=== PATIENT | male | born 1985 | race Caucasian/White ===

== ENCOUNTER → 2020-03-11 13:51 | Outpatient (REF) | payer BC, SELFPAY | LOC: HO.SL 13:51 | PROVIDERS: PCP Internal Medicine; Visit Provider Internal Medicine | DX: G47.00 Insomnia, unspecified (principal); R06.83 Snoring; R40.0 Somnolence | CPT/HCPCS: 95806 ==

== ENCOUNTER 2020-04-28 09:30 | Outpatient (REF) | payer BC, SELFPAY ==
[2020-04-28 11:11] LABS: MANUAL DIFF FLAG NO
[2020-04-28 11:15] LABS: Basophils Percent Auto 0.3 % (0-2); Eosinophils Absolute Auto 0.1 X10*3/uL (0.0-0.4); Eosinophils Percent Auto 1.9 % (0-4); Hematocrit 47.4 % (42-52); Hemoglobin 15.8 g/dl (14.0-18.0); Imm Gran Abs Auto 0.01 X10*3/uL (0.00-0.03); Imm Gran Pct Auto 0.2 % (0.0-0.4); Lymphocytes Percent Auto 32.6 % (20-40); Mean Corpuscular HGB Conc 33.3 g/dl (31.0-36.0); Mean Corpuscular Hemoglobin 28.3 pg (27.0-33.0); Mean Corpuscular Volume 84.8 fL (80-98); Mean Platelet Volume 9.5 fL (9.4-12.4); Monocytes Absolute Auto 0.5 X10*3/uL (0.1-1.2); Monocytes Percent Auto 8.6 % (2-11); Neutrophils Absolute Auto 3.5 X10*3/uL (2.0-8.3); Neutrophils Percent Auto 56.4 % (45-73); Platelet Count 234 X10*3/uL (160-400); Red Blood Count 5.59 X10*6/uL (4.60-5.80); Red Cell Distribution Width 12.6 % (11.0-16.0); White Blood Count 6.3 X10*3/uL (4.8-10.8)
[2020-04-28 11:54] LABS: Anion Gap 12 (12-20); Blood Urea Nitrogen 12 mg/dL (9-16); Calcium 9.7 mg/dL (8.4-10.2); Carbon Dioxide 30 mmol/L (22-29); Chloride 103 mmol/L (96-108); Cholesterol 171 mg/dL; Estimated Glomerular Filt Rate > 60; Glucose Fasting 83 mg/dL (60-99); HDL Cholesterol 36 mg/dL; LDL Cholesterol Calculated 108 mg/dl; Potassium 4.4 mmol/l (3.3-5.1); Sodium 141 mmol/L (135-145); Triglycerides 137 mg/dL
[2020-04-28 12:01] LABS: TSH reflex Free T4 0.43 mIU/mL (0.32-4.0)
== END 2020-04-28 09:31 | disposition home or self-care (01) ==
LOC: HO.HMGCLDS 09:30
PROVIDERS: PCP Internal Medicine; Visit Provider Internal Medicine
DX: E66.9 Obesity, unspecified (principal); F41.1 Generalized anxiety disorder; R40.0 Somnolence; G47.00 Insomnia, unspecified; R79.89 Other specified abnormal findings of blood chemistry
CPT/HCPCS: 36415; 80048; 80061; 84443; 85025

== ENCOUNTER → 2020-05-31 14:27 | Outpatient (BNVA) | payer BC, SELFPAY | PROVIDERS: PCP Internal Medicine; Visit Provider Physician Assistant ==

== ENCOUNTER → 2020-06-08 10:16 | Outpatient (BNVA) | payer BC, SELFPAY | PROVIDERS: PCP Internal Medicine; Referring Provider Internal Medicine; Visit Provider Psychiatry & Neurology Neurology ==

== ENCOUNTER → 2020-10-26 09:34 | Outpatient (BNVA) | payer BC, SELFPAY | PROVIDERS: PCP Internal Medicine; Visit Provider Psychiatry & Neurology Neurology ==

== ENCOUNTER 2021-07-07 11:10 | Outpatient (REF) | payer BC, SELFPAY | END 2021-07-07 11:11 | disposition home or self-care (01) | LOC: HO.LNP 11:10 | PROVIDERS: Visit Provider Physician Assistant | DX: Z13.89 Encounter for screening for other disorder (principal) ==

== ENCOUNTER 2023-03-20 12:09 | Outpatient (AMB) | payer BC, SELFPAY ==
--- NOTE | 2023-03-20 12:11 | A.OFFPC_ITS ---
Vital Signs 03/20/23 12:18 Weight 268 lb BP 120/90 H Blood Pressure Location Rt brachial Position Sitting Pulse 75 Pulse Source Pulse Oximeter Pulse Oximetry (%) 96 Oxygen Delivery Method Room Air Intake Visit Reasons: Frequent urination Allergies morphine [MORPHINE] Allergy (Severe, Verified 03/20/23 12:18) VOMITING VIOLENTLY, RASH, SOB, N/V Medication List - Last Reconciled 03/20/23 by Celina Albarado MD cholecalciferol (vitamin D3) 25 mcg PO DAILY dicyclomine 20 mg PO TID 90 days lansoprazole (Prevacid) 30 mg PO DAILY Tobacco use date assessed: 03/20/23 HPI Frequent urination HPI Details Patient is a 37-year-old gentleman came in today to talk about frequency of urination Patient says that he has this problem off and on Since he was little child he used to go to bathroom a lot. Some days he is okay some days he will have to go every 15 minutes Patient says that he had these symptoms he days ago so he walked appointment but he is little bit better now UA done today showed no glucose or any other signs of inflammation or infection in the bladder He has not had labs done since 2019 I have ordered full set of lab to be done fasting Patient is morbidly obese as well. With BMI of 40.6 He suffers from sleep apnea as well Irritable bowel syndrome managed through Gastroenterology patient is on dicyclomine I have added PSA, I have also prescribed Flomax to see if he benefits from this medication Patient will be seeing Urology for further management. [facility] Medical History Irritable bowel syndrome with diarrhea Sleep apnea Nocturnal hypoxemia Frequent nocturnal awakening Snoring Daytime somnolence Anxiety, generalized IBS (irritable bowel syndrome) Obesity Surgical History History of removal of cyst Family History Father No problems noted. Mother No problems noted. Maternal Grandfather Cancer of prostate Paternal Grandfather Cancer of prostate Sister No problems noted. Social History Household Members Other:: Zachary and her son Housing: House Alcohol intake: current Alcohol intake frequency: holidays/special occasions only Patient Tobacco Use Status: Former Tobacco user Tobacco use type: Cigarette Years Smoked: 8-9 years e-Cigarette/Vaping Use: Never Used service: No Current occupational status: employed Cognitive needs: No Hearing needs: No Vision needs: No Questionnaire PHQ-9 Over the last 2 weeks, how often have you been bothered by any of the following problems? 1. Little interest or pleasure in doing things: not at all 2. Feeling down, depressed, or hopeless: not at all 3. Trouble falling or staying asleep, or sleeping too much: not at all 4. Feeling tired or having little energy: not at all 5. Poor appetite or overeating: not at all 6. Feeling bad about yourself - or that you are a failure or have let yourself or your family down: not at all 7. Trouble concentrating on things, such as reading the newspaper or watching television: not at all 8. Moving or speaking so slowly that other people could have noticed. Or the opposite - being so fidgety or restless that you have been moving around a lot more than usual: not at all 9. Thoughts that you would be better off or of hurting yourself in some way: not at all Total score: 0 Depression Screening Interpretation: Negative Depression Screening Done: Yes 55289 - PHQ-9 Billing: Yes Source: Developed by Drs. Josesito Garcia, Nia Fernandes, Sebas Walter and colleagues, with an educational monica from [employer]. Thrive Questionnaire Date Thrive assessed: 11/24/20 AUDIT C Alcohol Use Questionnaire (AUDIT-C) 1. How often do you have a drink containing alcohol?: Monthly or less 2. How many drinks containing alcohol do you have on a typical day when you are drinking?: 1 or 2 3. How often do you have six or more drinks on one occasion?: Never Total Score: 1 Score Reviewed/Action Taken: Yes Review of Systems Const All systems reviewed & are unremarkable except as noted in HPI and below Denies chills and Denies fever(s) ENT Denies epistaxis and Denies nasal discharge Card Denies chest pain Resp Denies chest congestion, Denies cough and Denies hemoptysis GI Denies diarrhea and Denies nausea Skin/Breast Denies rash Neuro Reports no additional complaints Psych Reports no additional complaints Endo Reports no additional complaints Physical exam (Primary Care) Vital Signs: Last Vital Signs Pulse 75 03/20/23 12:18 BP 120/90 H 03/20/23 12:18 Pulse Ox 96 03/20/23 12:18 Oxygen Delivery Method Room Air 03/20/23 12:18 Tobacco/Smoking Status: Tobacco use Status Tobacco use date assessed 03/20/23 03/20/23 12:18 Patient Tobacco Use Status Former Tobacco user 03/20/23 12:13 Tobacco use type Cigarette 03/20/23 12:13 e-Cigarette/Vaping Use Never Used 03/20/23 12:13 Depression Screening Interpretation: Negative Thrive Assessment: Date of Thrive Assessment Date Thrive assessed 11/24/20 03/20/23 12:13 Const General: no acute distress Orientation/consciousness: patient oriented x3 Eyes General: appearance normal, both eyes and all related structures Resp Effort & Inspection: normal respiratory effort and able to speak in complete sentences Auscultation: clear to auscultation bilaterally Other: No suprapubic discomfort Neuro General: patient oriented x3 Psych Mental Status: mental status grossly normal Results AMB Urinalysis, Automated UA Leukoctes 0 Gómez/uL Last Edit by Aguila Rothman CMA on 03/20/23 12:25 UA Nitrite Negative Last Edit by Aguila Rothman CMA on 03/20/23 12:25 UA Urobilinogen 0.2 mg/dL Last Edit by Aguila Rothman CMA on 03/20/23 12 :25 UA Protein 0 mg/dL Last Edit by Aguila Rothman CMA on 03/20/23 12:25 UA pH 6.0 Last Edit by Aguila Rothman CMA on 03/20/23 12:25 UA Blood 0 Chris/uL Last Edit by Aguila Rothman CMA on 03/20/23 12:25 UA Specific [place] 1.025 Last Edit by Aguila Rothman CMA on 03/20/23 12:25 UA Ketone Negative Last Edit by Aguila Rothman CMA on 03/20/23 12:25 UA Bilirubin 0 mg/dL Last Edit by Aguila Rothman CMA on 03/20/23 12:25 UA Glucose 0 mg/dL Last Edit by Aguila Rothman CMA on 03/20/23 12:25 Results Reviewed Results Reviewed: Laboratory Last Values Urine pH (Auto) 6.0 03/20/23 12:24 Specific [place] (Auto) 1.025 03/20/23 12:24 Urine Protein (Auto) 0 mg/dL 03/20/23 12:24 Glucose (UA)(Auto) 0 mg/dL 03/20/23 12:24 Urine Ketones (Auto) Negative 03/20/23 12:24 Urine Blood (Auto) 0 Chris/uL 03/20/23 12:24 Urine Nitrite (Auto) Negative 03/20/23 12:24 Urine Bilirubin (Auto) 0 mg/dL 03/20/23 12:24 Urine Urobilinogen (Auto) 0.2 mg/dL 03/20/23 12:24 Leukocyte Esterase (Auto) 0 Gómez/uL 03/20/23 12:24 Assessment and Plan Assessment & Plan (1) Polyuria: Code(s): R35.89 - Other polyuria (2) Morbid obesity due to excess calories: Code(s): E66.01 - Morbid (severe) obesity due to excess calories (3) Obstructive sleep apnea: Code(s): G47.33 - Obstructive sleep apnea (adult) (pediatric) (4) Irritable bowel syndrome with diarrhea: Code(s): K58.0 - Irritable bowel syndrome with diarrhea Plan Patient is a 37-year-old gentleman came in today to talk about frequency of urination Patient says that he has this problem off and on Since he was little child he used to go to bathroom a lot. Some days he is okay some days he will have to go every 15 minutes Patient says that he had these symptoms he days ago so he walked appointment but he is little bit better now UA done today showed no glucose or any other signs of inflammation or infection in the bladder He has not had labs done since 2019 I have ordered full set of lab to be done fasting Patient is morbidly obese as well. With BMI of 40.6 He suffers from sleep apnea as well Irritable bowel syndrome managed through Gastroenterology patient is on dicyclomine I have added PSA, I have also prescribed Flomax to see if he benefits from this medication Patient will be seeing Urology for further management. Orders: Orders AMB Urinalysis Automated Today Z13.9 - Encounter for screening, unspecified Complete Blood Count Auto Diff Today E66.01 - Morbid (severe) obesity due to excess calories, G47.33 - Obstructive sleep apnea (adult) (pediatric), K58.0 - Irritable bowel syndrome with diarrhea, R35.89 - Other polyuria TSH reflex Free T4 Today E66.01 - Morbid (severe) obesity due to excess calories, G47.33 - Obstructive sleep apnea (adult) (pediatric), K58.0 - Irritable bowel syndrome with diarrhea, R35.89 - Other polyuria UA CC w/rflx Micro + Cult Today E66.01 - Morbid (severe) obesity due to excess calories, G47.33 - Obstructive sleep apnea (adult) (pediatric), K58.0 - Irritab le bowel syndrome with diarrhea, R35.89 - Other polyuria Comprehensive [place]. Panel Fast Today E66.01 - Morbid (severe) obesity due to excess calories, G47.33 - Obstructive sleep apnea (adult) (pediatric), K58.0 - Irritable bowel syndrome with diarrhea, R35.89 - Other polyuria Lipid Panel Today E66.01 - Morbid (severe) obesity due to excess calories, G47.33 - Obstructive sleep apnea (adult) (pediatric), K58.0 - Irritable bowel syndrome with diarrhea, R35.89 - Other polyuria Prostate Specific Antigen Today R35.89 - Other polyuria Referrals Urology Referral R35.89 - Other polyuria Medications: New tamsulosin (Flomax) 0.4 mg PO BEDTIME 30 caps 0RF Coding Level of Care Code Est Pt Level 4 (47896) Diagnoses Polyuria R35.89 Morbid obesity due to excess calories E66.01 Obstructive sleep apnea G47.33 Irritable bowel syndrome with diarrhea K58.0
[2023-03-20 12:18] VITALS: BP 120/90; PULSE 75; O2SAT 96
== END 2023-03-20 13:36 | disposition home or self-care (01) ==
PROVIDERS: PCP Internal Medicine; Visit Provider Internal Medicine
DX: R35.89 Other polyuria (principal); E66.01 Morbid (severe) obesity due to excess calories; G47.33 Obstructive sleep apnea (adult) (pediatric); K58.0 Irritable bowel syndrome with diarrhea; R35.0 Frequency of micturition
CPT/HCPCS: 81003; 99214

== ENCOUNTER 2023-05-18 14:51 | Outpatient (AMB) | payer BC, SELFPAY ==
--- NOTE | 2023-05-18 15:05 | MHC.OFFVIS ---
Intake Intake Visit Reasons: polyuria Intake Note: New Patient presents for initial visit for urinary frequency Urology Medications: tamsulosin ( patient d/c after 1 wk) Blood Thinner: none Pattern [employer] Required: No Accompanied by: Self / Same As Patient Allergies morphine [MORPHINE] Allergy (Severe, Verified 05/18/23 15:07) VOMITING VIOLENTLY, RASH, SOB, N/V HPI HPI Comments History of Present Illness Details Oniel is a very pleasant 37-year-old male patient of Dr. Albarado. He has a past medical history of irritable bowel syndrome, sleep apnea, daytime somnolence, and anxiety. Presents to the office today as a new patient for urinary frequency. In discussion with the patient today he reports noting intermittent episodes of urinary frequency however describes these episodes as variable. He discusses feeling urinary frequency is more pronounced on his days off. When asked he denies incontinence, nocturia, hematuria, dysuria, foul smelling urine, changes to urinary stream, flank pain, fever, and or chills. He reports having started Flomax with his PCP however stopped after taking it for 1 week as he noted retrograde ejaculation. He reports noting no improvement while on it for 1 week. When asked he does report family history of prostate cancer. He reports his maternal uncle had prostate cancer as well as his paternal grandfather. Discussed at length lifestyle modifications for urinary frequency. Discussed at length bladder triggers and irritants. Discussed further assessment evaluation with PSA as well as retroperitoneal ultrasound. When asked he does report compliance with sleep apnea machine. In office urinalysis results reviewed with the patient today. He discusses feeling lower urinary tract symptoms have been present since childhood however these symptoms vary day to day. PVR 54 mL. He otherwise offers no other issues or concerns at this time. [facility] Medical History Irritable bowel syndrome with diarrhea Sleep apnea Nocturnal hypoxemia Frequent nocturnal awakening Snoring Daytime somnolence Anxiety, generalized IBS (irritable bowel syndrome) Obesity Surgical History History of removal of cyst Family History Father No problems noted. Mother No problems noted. Maternal Grandfather Cancer of prostate Paternal Grandfather Cancer of prostate Sister No problems noted. Social History Household Members Other:: Zachary and her son Housing: House Alcohol intake: current Alcohol intake frequency: holidays/special occasions only Patient Tobacco Use Status: Former Tobacco user Tobacco use type: Cigarette Years Smoked: 8-9 years e-Cigarette/Vaping Use: Never Used service: No Current occupational status: employed Cognitive needs: No Hearing needs: No Vision needs: No Review of Systems Const All systems reviewed & are unremarkable except as noted in HPI and below Eyes Reports no additional complaints ENT Reports no additional complaints Card Reports as per HPI Resp Reports as per HPI GI Reports as per HPI Reports as per HPI Musc Reports no additional complaints Neuro Reports no additional complaints Psych Reports as per HPI Endo Reports no additional complaints Joni/Lymph Reports no additional complaints Aller/Immun Reports no additional complaints Physical Exam Const General: cooperative, healthy appearing, comfortable, no acute distress, well developed, alert and awake Nutritional Appearance: overweight Orientation/consciousness: patient oriented x3 Limitations: no limitations HEENT Head: Yes normal to inspection, Yes normocephalic and Yes atraumatic Ears: hearing grossly normal bilaterally Eyes General: appearance normal, both eyes and all related structures Neck Neck: Yes normal visual inspection and Yes trachea midline Chest Chest palpation & inspection: normal inspection of the chest Resp Effort & Inspection: normal respiratory effort and able to speak in complete sentences Cardio Rate: regular rate GI Inspection: Yes normal to inspection General: Yes no CVA tenderness Back/Spine/Pelvis Back: no CVA tenderness Skin General skin exam: no rashes or lesions noted Neuro General: patient oriented x3 Extrem General: Yes normal to inspection Psych Appearance: grossly normal and well kempt Mental Status: mental status grossly normal Speech and movement: Normal speech and movement present and Clear speech present Affect: normal affect Attitude: cooperative Thought process: Normal thought process present Thought content: Normal thought content present Insight: Fair insight present (Psych) Judgement: Fair judgement present (Psych) Office Procedures Post Void Residual Post Residual Void Post Void Residual (PVR): 54 [id number]-[id number] Void Residual by ultrasound Results AMB Urinalysis, Automated UA Leukoctes 0 Gómez/uL Last Edit by jB Jimenez on 05/18/23 15:32 UA Nitrite Negative Last Edit by Bj Jimenez on 05/18/23 15:32 UA Urobilinogen 0.2 mg/dL Last Edit by Bj Jimenez on 05/18/23 15:32 UA Protein 0 mg/dL Last Edit by Bj Jimenez on 05/18/23 15:32 UA pH 6.0 Last Edit by Bj Jimenez on 05/18/23 15:32 UA Blood 0 Chris/uL Last Edit by Bj Jimenez on 05/18/23 15:32 UA Specific [place] 1.030 Last Edit by Bj Jimenez on 05/18/23 15:32 UA Ketone Negative Last Edit by Bj Jimenez on 05/18/23 15:32 UA Bilirubin 0 mg/dL Last Edit by Bj Jimenez on 05/18/23 15:32 UA Glucose 0 mg/dL Last Edit by Bj Jimenez on 05/18/23 15:32 Results Reviewed Results Reviewed: Laboratory Last Values Urine pH (Auto) 6.0 05/18/23 15:09 Specific [place] (Auto) 1.030 05/18/23 15:09 Urine Protein (Auto) 0 mg/dL 05/18/23 15:09 Glucose (UA)(Auto) 0 mg/dL 05/18/23 15:09 Urine Ketones (Auto) Negative 05/18/23 15:09 Urine Blood (Auto) 0 Chris/uL 05/18/23 15:09 Urine Nitrite (Auto) Negative 05/18/23 15:09 Urine Bilirubin (Auto) 0 mg/dL 05/18/23 15:09 Urine Urobilinogen (Auto) 0.2 mg/dL 05/18/23 15:09 Leukocyte Esterase (Auto) 0 Gómez/uL 05/18/23 15:09 Assessment & Plan Assessment & Plan (1) Family history of prostate cancer: Code(s): Z80.42 - Family history of malignant neoplasm of prostate (2) Urinary frequency: Code(s): R35.0 - Frequency of micturition (3) Lower urinary tract symptoms: Code(s): R39.9 - Unspecified symptoms and signs involving the genitourinary system Plan In office urinalysis results reviewed with the patient today; as noted above. PVR 54 mL. Discussed at length potential causes for lower urinary tract symptoms patient is experiencing. Will obtain PSA for further assessment evaluation. Will obtain retroperitoneal ultrasound for further assessment evaluation. Discussed possible near future in office cystoscopy for further assessment evaluation. Discussed at length importance of continue with compliance of CPAP machine for improvement lower urinary tract symptoms as well as overall health and well-being. Discussed bladder diary Discuss trial of alfuzosin; however patient will await at this time. Follow-up in 1-2 months with imaging and lab to be completed prior; or sooner with any issues, concerns, and or questions. Orders: Orders AMB Post Void Residual by ultrasound Today R35.89 - Other polyuria US retroperitoneal comp Today R35.0 - Frequency of micturition, R39.9 - Unspecified symptoms and signs involving the genitourinary system AMB Urinalysis Automated Today Z13.9 - Encounter for screening, unspecified Prostate Specific Antigen Today Z80.42 - Family history of malignant neoplasm of prostate Patient Instructions: The patient had an opportunity to ask questions regarding the treatment plan. All questions were answered. Physical exam, labs, and imaging were discussed and reviewed in detail. As well as risks, benefits, and discussion of treatment choices. No major barriers to understanding were identified. The patient expressed understanding and agreement with the above treatment plan. The patient was made aware they should contact our office by phone for worsening of their current condition, the appearance of new symptoms, or with any questions or concerns. Compliance is encouraged with any medications and follow up testing that is ordered. It is a privilege to be allowed the opportunity to participate in? your urological care.? Again, if you have any questions or concerns If you have any questions or concerns please do not hesitate to contact me. The office is [phone]. This note is constructed using voice recognition software. While every effort has been made to ensure accuracy rn trauma errors may have been included. Yours sincerely, MARIA DEL CARMEN [place] Coding Level of Care Code New Pt Level 3 (05992) Diagnoses Family history of prostate cancer Z80.42 Urinary frequency R35.0 Lower urinary tract symptoms R39.9 CPT Codes Post Residual Void - PVR CPT Code: 45212-[place] Void Residual by ultrasound ([id number])
== END 2023-05-18 15:59 | disposition home or self-care (01) ==
PROVIDERS: PCP Internal Medicine; Visit Provider Nurse Practitioner Family
DX: Z80.42 Family history of malignant neoplasm of prostate (principal); R35.0 Frequency of micturition; R39.9 Unspecified symptoms and signs involving the genitourinary system; Z13.9 Encounter for screening, unspecified
CPT/HCPCS: 99203

== ENCOUNTER → 2023-05-18 14:51 | Outpatient (BNVA) | payer BC, SELFPAY | PROVIDERS: PCP Internal Medicine; Visit Provider Nurse Practitioner Family | DX: R35.0 Frequency of micturition (principal); R39.9 Unspecified symptoms and signs involving the genitourinary system; Z80.42 Family history of malignant neoplasm of prostate | CPT/HCPCS: 51798; 81003; 99202 ==

== ENCOUNTER 2023-05-26 08:59 | Outpatient (REF) | payer BC, SELFPAY ==
[2023-05-26 11:29] LABS: MANUAL DIFF FLAG NO
[2023-05-26 11:35] LABS: Appearance Urine Clear; Color Urine Yellow; Glucose Urine UA Negative (Negative); Leukocyte Esterase Urine Negative (Negative); Nitrite Urine Negative (Negative); PH 8.5 (5.0-9.0); Specific Gravity - Urine 1.025 (1.005-1.025); Urine Blood Negative (Negative); Urine Ketones Negative (Negative); Urine Protein Negative (Neg-Trace)
[2023-05-26 11:42] LABS: Basophils Percent Auto 0.4 % (0-2); Eosinophils Absolute Auto 0.1 X10*3/uL (0.0-0.4); Eosinophils Percent Auto 1.8 % (0-4); Hematocrit 46.8 % (42.0-52.0); Hemoglobin 15.6 g/dl (14.0-18.0); Imm Gran Abs Auto 0.02 X10*3/uL (0.00-0.03); Imm Gran Pct Auto 0.4 % (0.0-0.4); Lymphocytes Absolute Auto 1.7 X10*3/uL (1.2-4.9); Lymphocytes Percent Auto 29.8 % (20-40); Mean Corpuscular HGB Conc 33.3 g/dl (31.0-36.0); Mean Corpuscular Hemoglobin 28.1 pg (27.0-33.0); Mean Corpuscular Volume 84.2 fL (80.0-98.0); Mean Platelet Volume 9.3 fL (9.4-12.4); Monocytes Absolute Auto 0.4 X10*3/uL (0.1-1.2); Monocytes Percent Auto 7.1 % (2-11); Neutrophils Absolute Auto 3.4 x10*3/uL (2.0-8.3); Neutrophils Percent Auto 60.5 % (45-73); Platelet Count 217 X10*3/uL (160-400); Red Blood Count 5.56 X10*6/uL (4.60-5.80); Red Cell Distribution Width 13.2 % (11.0-16.0); White Blood Count 5.6 X10*3/uL (4.8-10.8)
[2023-05-26 11:56] LABS: Alanine Aminotransferase 31 U/L (0-40); Albumin Level 4.5 g/dL (3.5-5.0); Alkaline Phosphatase 94 U/L (39-117); Anion Gap 12 (12-20); Aspartate Amino Transferase 25 U/L (5-37); Bilirubin Total 0.6 mg/dL (0.0-1.0); Blood Urea Nitrogen 15 mg/dL (9-16); Calcium 9.7 mg/dL (8.4-10.2); Carbon Dioxide 24 mmol/L (22-29); Chloride 108 mmol/L (96-108); Cholesterol 163 mg/dL (<200); Estimated Glomerular Filt Rate > 60; Glucose Fasting 84 mg/dL (60-99); HDL Cholesterol 38 mg/dL (>40); LDL Cholesterol Calculated 106 mg/dL (<100); Potassium 4.3 mmol/L (3.3-5.1); Sodium 140 mmol/L (135-145); Total Protein 7.6 g/dL (6.5-8.0); Triglycerides 96 mg/dL (<150)
[2023-05-26 12:05] LABS: Prostate Specific Antigen 0.78 ng/mL (<0.05-4.0)
[2023-05-26 12:15] LABS: TSH reflex Free T4 0.04 uIU/mL (0.32-4.0)
[2023-05-26 12:49] LABS: Free T4 (Free Thyroxine) 0.84 ng/dL (0.71-1.85)
== END 2023-05-26 09:00 | disposition home or self-care (01) ==
LOC: HO.HMGCLDS 08:59
PROVIDERS: PCP Internal Medicine; Referring Provider Nurse Practitioner Family; Visit Provider Internal Medicine
DX: Z12.5 Encounter for screening for malignant neoplasm of prostate (principal); E66.01 Morbid (severe) obesity due to excess calories; R35.89 Other polyuria; K58.0 Irritable bowel syndrome with diarrhea; G47.33 Obstructive sleep apnea (adult) (pediatric)
CPT/HCPCS: 36415; 80053; 80061; 81003; 84153; 84439; 84443; 85025

== ENCOUNTER 2023-06-22 13:53 | Outpatient (REF) | payer BC, SELFPAY ==
--- NOTE | ~2023-06-22 | US_ITS ---
EXAMINATION: US RETROPERITONEAL COMPLETE (RENAL) CLINICAL INFORMATION: Urinary frequency.. COMPARISON: None available. TECHNIQUE: Real-time imaging of the kidneys and bladder. FINDINGS: RIGHT KIDNEY: 11.7 x 6.9 x 8.0 cm (SAG x AP x TRV). The kidney is normal in size, contour, and echogenicity. Renal cortical thickness is normal. No calculi or focal parenchymal lesions. No hydronephrosis. LEFT KIDNEY: 11.4 x 6.2 x 7.0 cm (SAG x AP x TRV). The kidney is normal in size, contour, and echogenicity. Renal cortical thickness is normal. No calculi or focal parenchymal lesions. No hydronephrosis. BLADDER: Well distended and normal. Bilateral ureteral jets are not demonstrated. Prevoid bladder volume is 135 mL. Postvoid bladder volume is 7.46 mL. US/US retroperitoneal comp IMPRESSION: 1. Unremarkable renal ultrasound. 2. Tiny postvoid residual bladder volume.
[2023-06-22 17:02] LABS: Prostate Specific Antigen 0.69 ng/mL (<0.05-4.0); TSH reflex Free T4 0.45 uIU/mL (0.32-4.0)
== END 2023-06-22 13:54 | disposition home or self-care (01) ==
LOC: HO.HMGCX 13:53
PROVIDERS: PCP Internal Medicine; Referring Provider Internal Medicine; Visit Provider Nurse Practitioner Family
DX: Z12.5 Encounter for screening for malignant neoplasm of prostate (principal); R39.9 Unspecified symptoms and signs involving the genitourinary system; R35.0 Frequency of micturition; R94.6 Abnormal results of thyroid function studies; Z80.42 Family history of malignant neoplasm of prostate
CPT/HCPCS: 36415; 76770; 81003; 84153; 84443

== ENCOUNTER 2023-06-22 15:37 | Outpatient (AMB) | payer BC, SELFPAY ==
--- NOTE | 2023-06-22 15:51 | A.OFFVIS_ITS ---
Intake Intake Visit Reasons: 6w/US/PSA Intake Note: Patient presents today for a follow up medications: None Blood Thinners: None Allergies to antibiotics: None Patient stated his PCP prescribed Tamsulosin and he is no longer taking it. Radio Interference Expert Required: No Accompanied by: Self / Same As Patient Allergies morphine [MORPHINE] Allergy (Severe, Verified 06/22/23 22:26) VOMITING VIOLENTLY, RASH, SOB, N/V Medication List - Last Reconciled 06/22/23 by ЕЛЕНА Bangura cholecalciferol (vitamin D3) 25 mcg PO DAILY dicyclomine 20 mg PO TID 90 days lansoprazole (Prevacid) 30 mg PO DAILY tadalafil (Cialis) 5 mg PO DAILY 90 days HPI HPI Comments History of Present Illness Details Oniel is a very pleasant 37-year-old male patient of Dr. Albarado. He has a past medical history of irritable bowel syndrome, sleep apnea, daytime somnolence, and anxiety. Presents to the office today for follow-up of his lower urinary tract symptoms. Of note, patient was seen approximately 6 weeks ago as a new patient for urinary frequency at which time a retroperitoneal ultrasound PSA were ordered for further assessment evaluation. These results were reviewed with the patient today. Bilateral kidneys with no calculi, lesions, and or hydronephrosis. The bladder is well distended and normal. Bilateral ureteral jets are not demonstrated. Pre void bladder volume is approximately 135 mL. Postvoid bladder volume is approximately 5 mL. PSA 224--0.7. When asked he does continue to report intermittent episodes of urinary frequency however describes these episodes as variable. He discusses feeling urinary frequency is more pronounced on his days off. When asked he denies incontinence, nocturia, hematuria, dysuria, foul smelling urine, changes to urinary stream, flank pain, fever, and or chills. He reports having trialed Flomax Flomax with his PCP however stopped after taking it for 1 week as he note d retrograde ejaculation. He reports noting no improvement while on it for 1 week. When asked he does report family history of prostate cancer. He reports his maternal uncle had prostate cancer as well as his paternal grandfather. Discussed at length lifestyle modifications for urinary frequency. Discussed at length bladder triggers and irritants. When asked he does report compliance with sleep apnea machine. In office urinalysis results reviewed with the patient today. He discusses feeling lower urinary tract symptoms have been present since childhood however these symptoms vary day to day. He otherwise offers no other issues or concerns at this time. [facility] Medical History Irritable bowel syndrome with diarrhea Sleep apnea Nocturnal hypoxemia Frequent nocturnal awakening Snoring Daytime somnolence Anxiety, generalized IBS (irritable bowel syndrome) Obesity Surgical History History of removal of cyst Family History Father No problems noted. Mother No problems noted. Maternal Grandfather Cancer of prostate Paternal Grandfather Cancer of prostate Sister No problems noted. Social History Household Members Other:: Zachary and her son Housing: House Alcohol intake: current Alcohol intake frequency: holidays/special occasions only Patient Tobacco Use Status: Former Tobacco user Tobacco use type: Cigarette Years Smoked: 8-9 years e-Cigarette/Vaping Use: Never Used service: No Current occupational status: employed Cognitive needs: No Hearing needs: No Vision needs: No Review of Systems Const All systems reviewed & are unremarkable except as noted in HPI and below Eyes Reports no additional complaints ENT Reports no additional complaints Card Reports as per HPI Resp Reports as per HPI GI Reports as per HPI Reports as per HPI Musc Reports no additional complaints Neuro Reports no additional complaints Psych Reports as per HPI Endo Reports no additional complaints Joni/Lymph Reports no additional complaints Aller/Immun Reports no additional complaints Physical Exam Const General: cooperative, healthy appearing, comfortable, no acute distress, well developed, alert and awake Nutritional Appearance: overweight Orientation/consciousness: patient oriented x3 Limitations: no limitations HEENT Head: Yes normal to inspection, Yes normocephalic and Yes atraumatic Ears: hearing grossly normal bilaterally Eyes General: appearance normal, both eyes and all related structures Neck Neck: Yes normal visual inspection and Yes trachea midline Chest Chest palpation & inspection: normal inspection of the chest Resp Effort & Inspection: normal respiratory effort and able to speak in complete sentences Cardio Rate: regular rate GI Inspection: Yes normal to inspection General: Yes no CVA tenderness Back/Spine/Pelvis Back: no CVA tenderness Skin General skin exam: no rashes or lesions noted Neuro General: patient oriented x3 Extrem General: Yes normal to inspection Psych Appearance: grossly normal and well kempt Mental Status: mental status grossly normal Speech and movement: Normal speech and movement present and Clear speech present Affect: normal affect Attitude: cooperative Thought process: Normal thought process present Thought content: Normal thought content present Insight: Fair insight present (Psych) Judgement: Fair judgement present (Psych) Results AMB Urinalysis, Automated UA Leukoctes 0 Gómez/uL [facility] on 06/22/23 16 :01 UA Nitrite Negative [facility] on 06/22/23 16: 01 UA Urobilinogen 0.2 mg/dL Last Edit by [facility], [facility] on 4 16:01 UA Protein 0 mg/dL Last Edit by [facility] on 06/22/23 16:01 UA pH 6.0 [facility] on 06/22/23 16:01 UA Blood 0 Chris/uL [facility] on 06/22/23 16:01 UA Specific Henry 1.015 Last Edit by [facility] on 16:01 UA Ketone Negative Last Edit by [facility], [facility] on 06/22/23 16:0 1 UA Bilirubin 0 mg/dL Last Edit by [facility] on 06/22/23 16: 01 UA Glucose 0 mg/dL [facility] on 06/22/23 16:01 Results Reviewed Results Reviewed: Laboratory Last Values Urine pH (Auto) 6.0 06/22/23 15:58 Specific Henry (Auto) 1.015 06/22/23 15:58 Urine Protein (Auto) 0 mg/dL 06/22/23 15:58 Glucose (UA)(Auto) 0 mg/dL 06/22/23 15:58 Urine Ketones (Auto) Negative 06/22/23 15:58 Urine Blood (Auto) 0 Chris/uL 06/22/23 15:58 Urine Nitrite (Auto) Negative 06/22/23 15:58 Urine Bilirubin (Auto) 0 mg/dL 06/22/23 15:58 Urine Urobilinogen (Auto) 0.2 mg/dL 06/22/23 15:58 Leukocyte Esterase (Auto) 0 Gómez/uL 06/22/23 15:58 Date of Service: 06/22/23 EXAMINATION: US RETROPERITONEAL COMPLETE (RENAL) FINDINGS: RIGHT KIDNEY: 11.7 x 6.9 x 8.0 cm (SAG x AP x TRV). The kidney is normal in size, contour, and echogenicity. Renal cortical thickness is normal. No calculi or focal parenchymal lesions. No hydronephrosis. LEFT KIDNEY: 11.4 x 6.2 x 7.0 cm (SAG x AP x TRV). The kidney is normal in size, contour, and echogenicity. Renal cortical thickness is normal. No calculi or focal parenchymal lesions. No hydronephrosis. BLADDER: Well distended and normal. Bilateral ureteral jets are not demonstrated. Prevoid bladder volume is 135 mL. Postvoid bladder volume is 7.46 mL. IMPRESSION: 1. Unremarkable renal ultrasound. 2. Tiny postvoid residual bladder volume. Assessment & Plan Assessment & Plan (1) Family history of prostate cancer: Code(s): Z80.42 - Family history of malignant neoplasm of prostate (2) Urinary frequency: Code(s): R35.0 - Frequency of micturition (3) Lower urinary tract symptoms: Code(s): R39.9 - Unspecified symptoms and signs involving the genitourinary system Plan In office urinalysis results reviewed with the patient today; as noted above. Recent retroperitoneal ultrasound results reviewed with the patient today; as noted above. Recent PSA results reviewed with the patient today; as noted above. Discussed at length potential causes for lower urinary tract symptoms patient is experiencing. Discussed possible near future in office cystoscopy for further assessment evaluation. Discussed at length importance of continue with compliance of CPAP machine for improvement lower urinary tract symptoms as well as overall health and well- being. Discussed bladder triggers/irritants. Start 5 mg Cialis daily as discussed and prescribed Follow-up in 1-2 months with PVR or sooner with any issues, concerns, and or questions. Orders: Orders AMB Urinalysis Automated Today R33.9 - Retention of urine, unspecified Medications: New tadalafil (Cialis) [id number] [facility] [id number] Member [id number] 5 mg PO DAILY 90 days 90 tabs 0RF Discontinued tamsulosin (Flomax) Discontinued Reason: Doctor's Order 0.4 mg PO BEDTIME 30 caps 0RF Patient Instructions: The patient had an opportunity to ask questions regarding the treatment plan. All questions were answered. Physical exam, labs, and imaging were discussed and reviewed in detail. As well as risks, benefits, and discussion of treatment choices. No major barriers to understanding were identified. The patient expressed understanding and agreement with the above treatment plan. The patient was made aware they should contact our office by phone for worsening of their current condition, the appearance of new symptoms, or with any questions or concerns. Compliance is encouraged with any medications and follow up testing that is ordered. It is a privilege to be allowed the opportunity to participate in? your urological care.? Again, if you have any questions or concerns If you have any questions or concerns please do not hesitate to contact me. The office is [phone]. This note is constructed using voice recognition software. While every effort has been made to ensure accuracy talent manager errors may have been included. Yours sincerely, MARIA DEL CARMEN Bangura Coding Level of Care Code Est Pt Level 4 (62293) Diagnoses Family history of prostate cancer Z80.42 Urinary frequency R35.0 Lower urinary tract symptoms R39.9
== END 2023-06-22 16:22 | disposition home or self-care (01) ==
PROVIDERS: PCP Internal Medicine; Visit Provider Nurse Practitioner Family
DX: Z80.42 Family history of malignant neoplasm of prostate (principal); R35.0 Frequency of micturition; R39.9 Unspecified symptoms and signs involving the genitourinary system
CPT/HCPCS: 99214

== ENCOUNTER 2023-08-02 15:33 | Outpatient (AMB) | payer BC, SELFPAY ==
--- NOTE | 2023-08-02 15:35 | A.OFFVIS_ITS ---
Intake Intake Visit Reasons: follow up/ PVR Intake Note: ? Patient presents today for a follow up on PVR Meds- None Allergies to Antibiotic- None Blood Thinner- None Post Void Residual: 0ml Patient stated he is not taking Tadalafil. Senior Architectural Designer Required: No Accompanied by: Self / Same As Patient Allergies morphine [MORPHINE] Allergy (Severe, Verified 08/02/23 16:10) VOMITING VIOLENTLY, RASH, SOB, N/V Medication List - Last Reconciled 08/02/23 by MARIBEL Bangura- cholecalciferol (vitamin D3) 25 mcg PO DAILY dicyclomine 20 mg PO TID 90 days lansoprazole (Prevacid) 30 mg PO DAILY multivitamin (Multiple Vitamins tablet) 1 tab PO DAILY oxybutynin chloride ER 10 mg PO DAILY 30 days HPI HPI Comments History of Present Illness Details Oniel is a very pleasant 37-year-old male patient of Dr. Albarado. He has a past medical history of irritable bowel syndrome, sleep apnea, daytime somnolence, and anxiety. Presents to the office today for follow-up of his lower urinary tract symptoms. Of note, patient was seen approximately 6 weeks ago at which time Flomax was discontinued as he had been reporting retrograde ejaculation to be bothersome and he was trialed on 5 mg of Cialis daily for ongoing lower urinary tract symptoms he has been experiencing. In discussion with the patient today he reports noting no improvement in urinary frequency and urgency. He otherwise denies incontinence, nocturia, hematuria, dysuria, foul smelling urine, changes to urinary stream, flank pain, fever, and or chills. Workup has included a retroperitoneal ultrasound noting bilateral kidneys with no calculi, lesions, and or hydronephrosis. The bladder is well distended and normal. Bilateral ureteral jets are not demonstrated. Pre void bladder volume is approximately 135 mL. Postvoid bladder volume is approximately 5 mL. PSA 06/30--0.7. He notes longstanding history of lower urinary tract symptoms since he was a child. He discusses lower urinary tract symptoms are variable day to day. Discussed at length bladder triggers and irritants. When asked he does report compliance with sleep apnea machine. In office urinalysis results reviewed with the patient today. PVR 0 mL. He discusses feeling lower urinary tract symptoms have been present since childhood however these symptoms vary day to day. He otherwise offers no other issues or concerns at this time. [facility] Medical History Irritable bowel syndrome with diarrhea Sleep apnea Nocturnal hypoxemia Frequent nocturnal awakening Snoring Daytime somnolence Anxiety, generalized IBS (irritable bowel syndrome) Obesity Surgical History History of removal of cyst Family History Father No problems noted. Mother No problems noted. Maternal Grandfather Cancer of prostate Paternal Grandfather Cancer of prostate Sister No problems noted. Social History Household Members Other:: Zachary and her son Housing: House Alcohol intake: current Alcohol intake frequency: holidays/special occasions only Patient Tobacco Use Status: Former Tobacco user Tobacco use type: Cigarette Years Smoked: 8-9 years e-Cigarette/Vaping Use: Never Used service: No Current occupational status: employed Cognitive needs: No Hearing needs: No Vision needs: No Review of Systems Const All systems reviewed & are unremarkable except as noted in HPI and below Eyes Reports no additional complaints ENT Reports no additional complaints Card Reports as per HPI Resp Reports as per HPI GI Reports as per HPI Reports as per HPI Musc Reports no additional complaints Neuro Reports no additional complaints Psych Reports as per HPI Endo Reports no additional complaints Joni/Lymph Reports no additional complaints Aller/Immun Reports no additional complaints Physical Exam Const General: cooperative, healthy appearing, comfortable, no acute distress, well developed, alert and awake Nutritional Appearance: overweight Orientation/consciousness: patient oriented x3 Limitations: no limitations HEENT Head: Yes normal to inspection, Yes normocephalic and Yes atraumatic Ears: hearing grossly normal bilaterally Eyes General: appearance normal, both eyes and all related structures Neck Neck: Yes normal visual inspection and Yes trachea midline Chest Chest palpation & inspection: normal inspection of the chest Resp Effort & Inspection: normal respiratory effort and able to speak in complete sentences Cardio Rate: regular rate GI Inspection: Yes normal to inspection General: Yes no CVA tenderness Back/Spine/Pelvis Back: no CVA tenderness Skin General skin exam: no rashes or lesions noted Neuro General: patient oriented x3 Extrem General: Yes normal to inspection Psych Appearance: grossly normal and well kempt Mental Status: mental status grossly normal Speech and movement: Normal speech and movement present and Clear speech present Affect: normal affect Attitude: cooperative Thought process: Normal thought process present Thought content: Normal thought content present Insight: Fair insight present (Psych) Judgement: Fair judgement present (Psych) Office Procedures Post Void Residual Post Residual Void Post Void Residual (PVR): 0 [id number] Void Residual by ultrasound Results AMB Urinalysis, Automated UA Leukoctes 0 Gómez/uL Last Edit by Natali Bell [facility] on 08/02/23 15 :53 UA Nitrite Negative Last Edit by Natali Bell [facility] on 08/02/23 15: 53 UA Urobilinogen 0.2 mg/dL Last Edit by Natali Bell [facility] on 4 15:53 UA Protein 0 mg/dL Last Edit by Natali Bell [facility] on 08/02/23 15:53 UA pH 7.0 Last Edit by Natali Bell [facility] on 08/02/23 15:53 UA Blood 0 Chris/uL Last Edit by Natali Bellzana Bell [facility] on 08/02/23 15:53 UA Specific [place] 1.015 Last Edit by Natali Bell [facility] on 15:53 UA Ketone Negative Last Edit by Natali Bell [facility] on 08/02/23 15:5 3 UA Bilirubin 0 mg/dL Last Edit by Natali Bellzana Bell [facility] on 08/02/23 15: 53 UA Glucose 0 mg/dL Last Edit by Natali Bellzana Bell [facility] on 08/02/23 15:53 Results Reviewed Results Reviewed: Laboratory Last Values Urine pH (Auto) 7.0 08/02/23 15:39 Specific V[place] (Auto) 1.015 08/02/23 15:39 Urine Protein (Auto) 0 mg/dL 08/02/23 15:39 Glucose (UA)(Auto) 0 mg/dL 08/02/23 15:39 Urine Ketones (Auto) Negative 08/02/23 15:39 Urine Blood (Auto) 0 Chris/uL 08/02/23 15:39 Urine Nitrite (Auto) Negative 08/02/23 15:39 Urine Bilirubin (Auto) 0 mg/dL 08/02/23 15:39 Urine Urobilinogen (Auto) 0.2 mg/dL 08/02/23 15:39 Leukocyte Esterase (Auto) 0 Gómez/uL 08/02/23 15:39 Assessment & Plan Assessment & Plan (1) Family history of prostate cancer: Code(s): Z80.42 - Family history of malignant neoplasm of prostate (2) Urinary frequency: Code(s): R35.0 - Frequency of micturition (3) Lower urinary tract symptoms: Code(s): R39.9 - Unspecified symptoms and signs involving the genitourinary system Plan In office urinalysis results reviewed with the patient today; as noted above. PVR 0 mL Stop Cialis Start oxybutynin 10 mg as discussed and prescribed. Discussed possible near future in office cystoscopy and or urodynamics for further assessment evaluation. Discussed at length potential causes for lower urinary tract symptoms patient is experiencing. Discussed at length importance of continue with compliance of CPAP machine for improvement lower urinary tract symptoms as well as overall health and well- being. Discussed bladder triggers/irritants. Follow-up in 1-2 months or sooner with any issues, concerns, and or questions. Orders: Orders AMB Urinalysis Automated Today R33.9 - Retention of urine, unspecified AMB Post Void Residual by ultrasound Today R33.9 - Retention of urine, unspecified Medications: New oxybutynin chloride ER 10 mg PO DAILY 30 days 30 tabs 2RF N32.81 - Overactive bladder Discontinued tadalafil (Cialis) [id number] [facility] [id number] Member [id number] Discontinued Reason: Change Referral Type 5 mg PO DAILY 90 days 90 tabs 0RF Patient Instructions: The patient had an opportunity to ask questions regarding the treatment plan. All questions were answered. Physical exam, labs, and imaging were discussed and reviewed in detail. As well as risks, benefits, and discussion of treatment choices. No major barriers to understanding were identified. The patient expressed understanding and agreement with the above treatment plan. The patient was made aware they should contact our office by phone for worsening of their current condition, the appearance of new symptoms, or with any questions or concerns. Compliance is encouraged with any medications and follow up testing that is ordered. It is a privilege to be allowed the opportunity to participate in? your urological care.? Again, if you have any questions or concerns If you have any questions or concerns please do not hesitate to contact me. The office is [phone]. This note is constructed using voice recognition software. While every effort has been made to ensure accuracy public health microbiologist errors may have been included. Yours sincerely, MARIA DEL CARMEN Bangura Coding Level of Care Code Est Pt Level 4 (29547) Diagnoses Family history of prostate cancer Z80.42 Urinary frequency R35.0 Lower urinary tract symptoms R39.9 CPT Codes Post Residual Void - PVR CPT Code: 96174-Amjy Void Residual by ultrasound ([id number])
== END 2023-08-02 16:19 | disposition home or self-care (01) ==
PROVIDERS: PCP Internal Medicine; Visit Provider Nurse Practitioner Family
DX: Z80.42 Family history of malignant neoplasm of prostate (principal); R35.0 Frequency of micturition; R39.9 Unspecified symptoms and signs involving the genitourinary system
CPT/HCPCS: 99214

== ENCOUNTER → 2023-08-02 15:33 | Outpatient (BNVA) | payer BC, SELFPAY | PROVIDERS: PCP Internal Medicine; Visit Provider Nurse Practitioner Family | DX: R35.0 Frequency of micturition (principal); R39.9 Unspecified symptoms and signs involving the genitourinary system; R33.9 Retention of urine, unspecified; N32.81 Overactive bladder; Z80.42 Family history of malignant neoplasm of prostate | CPT/HCPCS: 51798; 81003 ==

== ENCOUNTER 2023-11-16 12:02 | Outpatient (AMB) | payer BC, SELFPAY ==
--- NOTE | 2023-11-16 11:58 | A.OFFVIS_ITS ---
Intake Visit Reasons: 7w follow up(set) Intake Note: ? Patient presents today for 7w f/u Meds- oxybutynin Allergies to Antibiotic- None Blood Thinner- None Post Void Residual: 0ml Fisher Dip Net Required: No Accompanied by: Self / Same As Patient Allergies morphine [MORPHINE] Allergy (Severe, Verified 11/17/23 15:59) VOMITING VIOLENTLY, RASH, SOB, N/V Medication List - Last Reconciled 11/17/23 by MARIBEL Bangura- cholecalciferol (vitamin D3) 25 mcg PO DAILY dicyclomine 20 mg PO TID 90 days lansoprazole (Prevacid) 30 mg PO DAILY multivitamin (Multiple Vitamins tablet) 1 tab PO DAILY HPI Comments Details: Oniel is a very pleasant 37-year-old male patient of Dr. Albarado. He has a past medical history of irritable bowel syndrome, sleep apnea, daytime somnolence, and anxiety. He is being followed up on today via video telehealth for his ongoing lower urinary tract symptoms. Of note, patient was seen approximately 4 months ago at which time he was trialed on oxybutynin for reports of urinary urgency and urinary frequency. In discussion with the patient today he reports no improvement in these symptoms. He reports feeling when he is at work he has no bothersome urinary issues however when he is home or has days off he feels symptoms of urinary urgency and frequency. He has previously trialed Flomax, alfuzosin, and Cialis in the past with no improvement either. Discussed at length potential causes for lower urinary tract symptoms patient is experiencing. Previous workup has included a retroperitoneal ultrasound noting bilateral kidneys with no calculi, lesions, and or hydro nephrosis. The bladder is well distended and normal. Bilateral ureteral jets are not demonstrated. Pre void bladder volume is approximately 135 mL. Postvoid bladder volume is approximately 5 mL. PSA 224--0.7. He notes longstanding history of lower urinary tract symptoms since he was a child. He discusses lower urinary tract symptoms are variable day to day. Discussed at length bladder triggers and irritants. When asked he does report compliance with sleep apnea machine. He discusses feeling lower urinary tract symptoms have been present since childhood however these symptoms vary day to day. He denies incontinence, nocturia, hematuria, dysuria, foul smelling urine, changes to urinary stream, flank pain, fever, and or chills. He otherwise offers no other issues or concerns at this time. [facility] Medical History Irritable bowel syndrome with diarrhea Sleep apnea Nocturnal hypoxemia Frequent nocturnal awakening Snoring Daytime somnolence Anxiety, generalized IBS (irritable bowel syndrome) Obesity Surgical History History of removal of cyst Family History Father No problems noted. Mother No problems noted. Maternal Grandfather Cancer of prostate Paternal Grandfather Cancer of prostate Sister No problems noted. Social History Household Members Other:: Zachary and her son Housing: House Alcohol intake: current Alcohol intake frequency: holidays/special occasions only Patient Tobacco Use Status: Former Tobacco user Tobacco use type: Cigarette Years Smoked: 8-9 years e-Cigarette/Vaping Use: Never Used service: No Current occupational status: employed Cognitive needs: No Hearing needs: No Vision needs: No Review of Systems Const All systems reviewed & are unremarkable except as noted in HPI and below Eyes Reports no additional complaints ENT Reports no additional complaints Card Reports as per HPI Resp Reports as per HPI GI Reports as per HPI Reports as per HPI Musc Reports no additional complaints Neuro Reports no additional complaints Psych Reports as per HPI Endo Reports no additional complaints Joni/Lymph Reports no additional complaints Aller/Immun Reports no additional complaints Physical Exam Const General: cooperative, comfortable, no acute distress, well developed, alert and awake Orientation/consciousness: patient oriented x3 Resp Effort & Inspection: normal respiratory effort and able to speak in complete sentences Neuro General: patient oriented x3 Psych Appearance: grossly normal and well kempt Mental Status: mental status grossly normal Speech and movement: Clear speech present Affect: normal affect Attitude: cooperative Thought process: Normal thought process present Thought content: Normal thought content present Insight: Fair insight present (Psych) Judgement: Fair judgement present (Psych) Telehealth Telehealth Telehealth Platform: [employer] Location of provider rendering services: practice address Location of patient: address on file Patient Identification confirmed using: Name, : Yes Telehealth method: video Patient verbally consented to treatment: Yes Patient verbally consented to billing insurance company: Yes Patient informed of any privacy concerns related to visit: Yes Minutes spent on Phone/Video with Pt.: 15 Assessment & Plan Assessment & Plan (1) Family history of prostate cancer: Code(s): Z80.42 - Family history of malignant neoplasm of prostate Category: Medical (2) Urinary frequency: Code(s): R35.0 - Frequency of micturition Category: Medical (3) Lower urinary tract symptoms: Code(s): R39.9 - Unspecified symptoms and signs involving the genitourinary system Category: Medical Plan Stop oxybutynin Discussed possible near future in office cystoscopy and or urodynamics for further assessment evaluation; however patient declines at this time. Discussed at length potential causes for lower urinary tract symptoms patient is experiencing. Discussed at length importance of continue with compliance of CPAP machine for improvement lower urinary tract symptoms as well as overall health and well- being. Discussed bladder triggers/irritants. Follow-up in 3 months or sooner with any issues, concerns, and or questions. Medications: Discontinued oxybutynin chloride ER Discontinued Reason: Doctor's Order 10 mg PO DAILY 30 tabs 2RF 30 days N32.81 - Overactive bladder Patient Instructions: The patient had an opportunity to ask questions regarding the treatment plan. All questions were answered. Physical exam, labs, and imaging were discussed and reviewed in detail. As well as risks, benefits, and discussion of treatment choices. No major barriers to understanding were identified. The patient expressed understanding and agreement with the above treatment plan. The patient was made aware they should contact our office by phone for worsening of their current condition, the appearance of new symptoms, or with any questions or concerns. Compliance is encouraged with any medications and follow up testing that is ordered. It is a privilege to be allowed the opportunity to participate in? your urological care.? Again, if you have any questions or concerns If you have any questions or concerns please do not hesitate to contact me. The office is [phone]. This note is constructed using voice recognition software. While every effort has been made to ensure accuracy drawing kiln supervisor errors may have been included. Yours sincerely, MARIA DEL CARMEN Bangura Coding Level of Care Code Tele Est Pt Level 3 (14054) Diagnoses Family history of prostate cancer Z80.42 Urinary frequency R35.0 Lower urinary tract symptoms R39.9
== END 2023-11-16 12:13 | disposition home or self-care (01) ==
LOC: HO.HUSH 12:02
PROVIDERS: PCP Internal Medicine; Visit Provider Nurse Practitioner Family
DX: Z80.42 Family history of malignant neoplasm of prostate (principal); R35.0 Frequency of micturition; R39.9 Unspecified symptoms and signs involving the genitourinary system
CPT/HCPCS: 99213

== ENCOUNTER → 2023-11-16 12:02 | Outpatient (BNVA) | payer BC, SELFPAY | PROVIDERS: PCP Internal Medicine; Visit Provider Nurse Practitioner Family ==

== ENCOUNTER 2023-11-16 15:09 | Outpatient (AMB) | payer BC, SELFPAY ==
[2023-11-16 15:11] VITALS: BP 146/88; PULSE 72; O2SAT 97; BMI 41.2
--- NOTE | 2023-11-16 15:11 | MHC.PC.OV ---
Vital Signs 11/16/23 15:11 Height 5 ft 7 in Weight 263 lb 6 oz BMI 41.2 BP 146/88 H Blood Pressure Location Lt brachial Position Sitting Pulse 72 Pulse Source Pulse Oximeter Pulse Oximetry (%) 97 Oxygen Delivery Method Room Air Intake Visit Reasons: 6 month follow-up Allergies morphine [MORPHINE] Allergy (Severe, Verified 11/16/23 15:11) VOMITING VIOLENTLY, RASH, SOB, N/V Medication List - Last Reconciled 11/16/23 by Celina Albarado MD cholecalciferol (vitamin D3) 25 mcg PO DAILY dicyclomine 20 mg PO TID 90 days lansoprazole (Prevacid) 30 mg PO DAILY multivitamin (Multiple Vitamins tablet) 1 tab PO DAILY Tobacco use date assessed: 11/16/23 Dental Screening Dental Screen Date: 11/16/23 Did you have a dental visit in the last 12 months?: Yes Did you have a dental problem in the last 6 months where you did not have access to dental care?: No Was dental information given to patient?: Patient has dentist HPI 6 month follow-up HPI Details Patient is a 37-year-old gentleman with a history of morbid obesity, diarrhea predominant IBS, chronic GERD, sleep apnea Came in for his regular six-month follow-up appointment Patient is doing well as far as IBS is concerned He says he has good days and bad is He is taking dicyclomine 3 times a day I have told him to cut down on the dose and see if he is still feels the cramping He offers no new complaints today Lab order placed to be done before next visit in six-month GERD symptoms controlled and he is taking vitamin-D regularly COUNTS INCLUDE 234 BEDS AT THE [facility] Medical History Irritable bowel syndrome with diarrhea Sleep apnea Nocturnal hypoxemia Frequent nocturnal awakening Snoring Daytime somnolence Anxiety, generalized IBS (irritable bowel syndrome) Obesity Surgical History History of removal of cyst Family History Father No problems noted. Mother No problems noted. Maternal Grandfather Cancer of prostate Paternal Grandfather Cancer of prostate Sister No problems noted. Social History Household Members Other:: Zachary and her son Housing: House Alcohol intake: current Alcohol intake frequency: holidays/special occasions only Patient Tobacco Use Status: Former Tobacco user Tobacco use type: Cigarette Years Smoked: 8-9 years e-Cigarette/Vaping Use: Never Used service: No Current occupational status: employed Cognitive needs: No Hearing needs: No Vision needs: No Questionnaire PHQ-9 Over the last 2 weeks, how often have you been bothered by any of the following problems? 1. Little interest or pleasure in doing things: not at all 2. Feeling down, depressed, or hopeless: not at all 3. Trouble falling or staying asleep, or sleeping too much: not at all 4. Feeling tired or having little energy: not at all 5. Poor appetite or overeating: not at all 6. Feeling bad about yourself - or that you are a failure or have let yourself or your family down: not at all 7. Trouble concentrating on things, such as reading the newspaper or watching television: not at all 8. Moving or speaking so slowly that other people could have noticed. Or the opposite - being so fidgety or restless that you have been moving around a lot more than usual: not at all 9. Thoughts that you would be better off or of hurting yourself in some way: not at all Total score: 0 Depression Screening Interpretation: Negative Depression Screening Done: Yes 33579 - PHQ-9 Billing: Yes Source: Developed by Drs. Josesito Garcia, Nia Fernandes, Sebas Walter and colleagues, with an educational monica from [employer]. Thrive Questionnaire Date Thrive assessed: 11/24/20 AUDIT C Alcohol Use Questionnaire (AUDIT-C) 1. How often do you have a drink containing alcohol?: Monthly or less 2. How many drinks containing alcohol do you have on a typical day when you are drinking?: 1 or 2 3. How often do you have six or more drinks on one occasion?: Never Total Score: 1 Score Reviewed/Action Taken: Yes Review of Systems Const Denies chills and Denies fever(s) ENT Denies epistaxis and Denies nasal discharge Card Denies chest pain Resp Denies chest congestion, Denies cough and Denies hemoptysis GI Denies nausea Skin/Breast Denies rash Neuro Reports no additional complaints Psych Reports no additional complaints Endo Reports no additional complaints Physical exam (Primary Care) Vital Signs: Last Vital Signs Pulse 72 11/16/23 15:11 BP 146/88 H 11/16/23 15:11 Pulse Ox 97 11/16/23 15:11 Oxygen Delivery Method Room Air 11/16/23 15:11 BMI result Body Mass Index 41.2 Tobacco/Smoking Status: Tobacco use Status Tobacco use date assessed 11/16/23 11/16/23 15:13 Patient Tobacco Use Status Former Tobacco user 11/16/23 15:13 Tobacco use type Cigarette 11/16/23 15:13 e-Cigarette/Vaping Use Never Used 11/16/23 15:13 Depression Screening Interpretation: Negative Thrive Assessment: Date of Thrive Assessment Date Thrive assessed 11/24/20 11/16/23 15:13 Const General: cooperative, comfortable and no acute distress Orientation/consciousness: patient oriented x3 HENMT Head: Yes normocephalic Eyes General: appearance normal, both eyes and all related structures Neck Neck: Yes supple Resp Effort & Inspection: normal respiratory effort, no cough and no stridor Cardio Rhythm: regular rhythm Heart sounds: S1 normal heart sound present and S2 normal heart sound present Skin General skin exam: turgor normal Neuro General: patient oriented x3, tone normal and moves all extremities Extrem Right lower extremity: no edema Left lower extremity: no edema Assessment and Plan Assessment & Plan (1) Irritable bowel syndrome with diarrhea: Code(s): K58.0 - Irritable bowel syndrome with diarrhea (2) Obstructive sleep apnea: Code(s): G47.33 - Obstructive sleep apnea (adult) (pediatric) (3) Morbid obesity due to excess calories: Code(s): E66.01 - Morbid (severe) obesity due to excess calories (4) Chronic GERD: Code(s): K21.9 - Gastro-esophageal reflux disease without esophagitis (5) Vitamin D deficiency: Code(s): E55.9 - Vitamin D deficiency, unspecified Plan Patient is a 37-year-old gentleman with a history of morbid obesity, diarrhea predominant IBS, chronic GERD, sleep apnea Came in for his regular six-month follow-up appointment Patient is doing well as far as IBS is concerned He says he has good days and bad is He is taking dicyclomine 3 times a day I have told him to cut down on the dose and see if he is still feels the cramping He offers no new complaints today Lab order placed to be done before next visit in six-month GERD symptoms controlled and he is taking vitamin-D regularly Orders: Orders Complete Blood Count Auto Diff Today E55.9 - Vitamin D deficiency, unspecified, G47.33 - Obstructive sleep apnea (adult) (pediatric), K21.9 - Gastro-esophageal reflux disease without esophagitis, K58.0 - Irritable bowel syndrome with diarrhea Comprehensive [place]. Panel Fast Today E55.9 - Vitamin D deficiency, unspecified, G47.33 - Obstructive sleep apnea (adult) (pediatric), K21.9 - Gastro-esophageal reflux disease without esophagitis, K58.0 - Irritable bowel syndrome with diarrhea Lipid Panel Today E55.9 - Vitamin D deficiency, unspecified, G47.33 - Obstructive sleep apnea (adult) (pediatric), K21.9 - Gastro-esophageal reflux disease without esophagitis, K58.0 - Irritable bowel syndrome with diarrhea TSH reflex Free T4 Today E55.9 - Vitamin D deficiency, unspecified, G47.33 - Obstructive sleep apnea (adult) (pediatric), K21.9 - Gastro-esophageal reflux disease without esophagitis, K58.0 - Irritable bowel syndrome with diarrhea Vitamin D 25-OH (D2 and D3) Today E55.9 - Vitamin D deficiency, unspecified Coding Level of Care Code Est Pt Level 4 (94324) Diagnoses Irritable bowel syndrome with diarrhea K58.0 Obstructive sleep apnea G47.33 Morbid obesity due to excess calories E66.01 Chronic GERD K21.9 Vitamin D deficiency E55.9
== END 2023-11-16 15:22 | disposition home or self-care (01) ==
PROVIDERS: PCP Internal Medicine; Visit Provider Internal Medicine
DX: K58.0 Irritable bowel syndrome with diarrhea (principal); G47.33 Obstructive sleep apnea (adult) (pediatric); E66.01 Morbid (severe) obesity due to excess calories; Z68.41 Body mass index [BMI] 40.0-44.9, adult; K21.9 Gastro-esophageal reflux disease without esophagitis; E55.9 Vitamin D deficiency, unspecified
CPT/HCPCS: 99214

== ENCOUNTER 2024-02-13 15:54 | Outpatient (AMB) | payer BC, SELFPAY ==
--- NOTE | 2024-02-13 15:59 | MHC.OFFVIS ---
Intake Visit Reasons: 3m/PVR Intake Note: Patient presents today for follow up on: urinary frequency Meds- d/c oxybutynin Allergies to Antibiotic- None Blood Thinner- None Post Void Residual: 23ml's Directory Assistance Operator Required: No Accompanied by: Self / Same As Patient Allergies morphine [MORPHINE] Allergy (Severe, Verified 02/13/24 19:59) VOMITING VIOLENTLY, RASH, SOB, N/V Medication List - Last Reconciled 02/13/24 by MARIBEL Bangura- cholecalciferol (vitamin D3) 25 mcg PO DAILY lansoprazole (Prevacid) 30 mg PO DAILY multivitamin (Multiple Vitamins tablet) 1 tab PO DAILY HPI Comments Details: Oniel is a very pleasant 38-year-old male patient of Dr. Albarado. He has a past medical history of irritable bowel syndrome, sleep apnea, daytime somnolence, and anxiety. He presents to the office today for follow-up of his ongoing lower urinary tract symptoms. In discussion with the patient today he reports noting mild improvement in lower urinary tract symptoms he experiences. He has previously trialed oxybutynin, Flomax, and low-dose Cialis for reports of urinary urgency and urinary frequency however has not found any of these medications helpful. He feels he continues to manage these symptoms independently. We discussed further workup with in office cystoscopy and or urodynamics. Previous workup has included a retroperitoneal ultrasound noting bilateral kidneys with no calculi, lesions, and or hydronephrosis. The bladder is well distended and normal. Bilateral ureteral jets are not demonstrated. Pre void bladder volume is approximately 135 mL. Postvoid bladder volume is approximately 5 mL. PSA 2/24--0.7. He notes longstanding history of lower urinary tract symptoms since he was a child. He discusses lower urinary tract symptoms are variable day to day. Discussed at length bladder triggers and irritants. When asked he does report compliance with sleep apnea machine. He discusses feeling lower urinary tract symptoms have been present since childhood however these symptoms vary day to day. He denies incontinence, nocturia, hematuria, dysuria, foul smelling urine, changes to urinary stream, flank pain, fever, and or chills. In office urinalysis results reviewed with the patient today. PVR 23 mL. He otherwise offers no other issues or concerns at this time. PFSH Medical History Irritable bowel syndrome with diarrhea Sleep apnea Nocturnal hypoxemia Frequent nocturnal awakening Snoring Daytime somnolence Anxiety, generalized IBS (irritable bowel syndrome) Obesity Surgical History History of removal of cyst Family History Father No problems noted. Mother No problems noted. Maternal Grandfather Cancer of prostate Paternal Grandfather Cancer of prostate Sister No problems noted. Social History Household Members Other:: Zachary and her son Housing: House Alcohol intake: current Alcohol intake frequency: holidays/special occasions only Patient Tobacco Use Status: Former Tobacco user Tobacco use type: Cigarette Years Smoked: 8-9 years e-Cigarette/Vaping Use: Never Used service: No Current occupational status: employed Cognitive needs: No Hearing needs: No Vision needs: No Review of Systems Const All systems reviewed & are unremarkable except as noted in HPI and below Eyes Reports no additional complaints ENT Reports no additional complaints Card Reports as per HPI Resp Reports as per HPI GI Reports as per HPI Reports as per HPI Musc Reports no additional complaints Neuro Reports no additional complaints Psych Reports as per HPI Endo Reports no additional complaints Joni/Lymph Reports no additional complaints Aller/Immun Reports no additional complaints Physical Exam Const General: cooperative, healthy appearing, comfortable, no acute distress, well developed, alert and awake Nutritional Appearance: overweight Orientation/consciousness: patient oriented x3 Limitations: no limitations HEENT Head: Yes normal to inspection, Yes normocephalic and Yes atraumatic Ears: hearing grossly normal bilaterally Eyes General: appearance normal, both eyes and all related structures Neck Neck: Yes normal visual inspection and Yes trachea midline Chest Chest palpation & inspection: normal inspection of the chest Resp Effort & Inspection: normal respiratory effort and able to speak in complete sentences Cardio Rate: regular rate GI Inspection: Yes normal to inspection General: Yes no CVA tenderness Back/Spine/Pelvis Back: no CVA tenderness Skin General skin exam: no rashes or lesions noted Neuro General: patient oriented x3 Extrem General: Yes normal to inspection Psych Appearance: grossly normal and well kempt Mental Status: mental status grossly normal Speech and movement: Normal speech and movement present and Clear speech present Affect: normal affect Attitude: cooperative Thought process: Normal thought process present Thought content: Normal thought content present Insight: Fair insight present (Psych) Judgement: Fair judgement present (Psych) Office Procedures Post Void Residual Post Residual Void Post Void Residual (PVR): 23 [id number]-[id number] Void Residual by ultrasound Results AMB Urinalysis, Automated UA Leukoctes 0 Gómez/uL Last Edit by Bj Jimenez on 02/13/24 16:23 UA Nitrite Last Edit by Bj Jimenez on 02/13/24 16:23 UA Urobilinogen 0.2 mg/dL Last Edit by [email or web address] on 02/13/24 16:23 UA Protein 15 mg/dL Last Edit by [email or web address] on 02/13/24 16:23 UA pH 6.0 Last Edit by [email or web address] on 02/13/24 16:23 UA Blood 0 Chris/uL Last Edit by [email or web address] on 02/13/24 16:23 UA Specific [place] 1.020 Last Edit by [email or web address] on 02/13/24 16:23 UA Ketone Negative Last Edit by [email or web address] on 02/13/24 16:23 UA Bilirubin 0 mg/dL Last Edit by [email or web address] on 02/13/24 16:23 UA Glucose 0 mg/dL Last Edit by [email or web address] Jimenez on 02/13/24 16:23 Results Reviewed Results Reviewed: Laboratory Last Values Urine pH (Auto) 6.0 02/13/24 16:22 Specific [place] (Auto) 1.020 02/13/24 16:22 Urine Protein (Auto) 15 mg/dL 02/13/24 16:22 Glucose (UA)(Auto) 0 mg/dL 02/13/24 16:22 Urine Ketones (Auto) Negative 02/13/24 16:22 Urine Blood (Auto) 0 Chris/uL 02/13/24 16:22 Urine Bilirubin (Auto) 0 mg/dL 02/13/24 16:22 Urine Urobilinogen (Auto) 0.2 mg/dL 02/13/24 16:22 Leukocyte Esterase (Auto) 0 Gómez/uL 02/13/24 16:22 Assessment & Plan Assessment & Plan (1) Family history of prostate cancer: Code(s): Z80.42 - Family history of malignant neoplasm of prostate Category: Medical (2) Urinary frequency: Code(s): R35.0 - Frequency of micturition Category: Medical (3) Lower urinary tract symptoms: Code(s): R39.9 - Unspecified symptoms and signs involving the genitourinary system Category: Medical Plan In office urinalysis results with the patient today; as noted above. PVR 23 mL. Discussed possible near future in office cystoscopy and or urodynamics for further assessment evaluation; however patient declines at this time. Discussed at length potential causes for lower urinary tract symptoms patient is experiencing. Discussed at length importance of continue with compliance of CPAP machine for improvement lower urinary tract symptoms as well as overall health and well-being. Discussed bladder triggers/irritants. Follow-up in 6 months or sooner with any issues, concerns, and or questions. Orders: Orders AMB Urinalysis Automated Today Z13.9 - Encounter for screening, unspecified AMB Post Void Residual by ultrasound Today R35.0 - Frequency of micturition Patient Instructions: The patient had an opportunity to ask questions regarding the treatment plan. All questions were answered. Physical exam, labs, and imaging were discussed and reviewed in detail. As well as risks, benefits, and discussion of treatment choices. No major barriers to understanding were identified. The patient expressed understanding and agreement with the above treatment plan. The patient was made aware they should contact our office by phone for worsening of their current condition, the appearance of new symptoms, or with any questions or concerns. Compliance is encouraged with any medications and follow up testing that is ordered. It is a privilege to be allowed the opportunity to participate in? your urological care.? Again, if you have any questions or concerns If you have any questions or concerns please do not hesitate to contact me. The office is [phone]. This note is constructed using voice recognition software. While every effort has been made to ensure accuracy visual manager errors may have been included. Yours sincerely, MARIBEL Bangura-SONJA Coding Level of Care Code Est Pt Level 3 (88598) Diagnoses Family history of prostate cancer Z80.42 Urinary frequency R35.0 Lower urinary tract symptoms R39.9 CPT Codes Post Residual Void - PVR CPT Code: 91858-Fjdc Void Residual by ultrasound ([id number])
== END 2024-02-13 16:25 | disposition home or self-care (01) ==
PROVIDERS: PCP Internal Medicine; Visit Provider Nurse Practitioner Family
DX: Z80.42 Family history of malignant neoplasm of prostate (principal); R35.0 Frequency of micturition; R39.9 Unspecified symptoms and signs involving the genitourinary system; Z13.9 Encounter for screening, unspecified
CPT/HCPCS: 99213

== ENCOUNTER → 2024-02-13 15:54 | Outpatient (BNVA) | payer BC, SELFPAY | PROVIDERS: PCP Internal Medicine; Visit Provider Nurse Practitioner Family | DX: R35.0 Frequency of micturition (principal); R39.9 Unspecified symptoms and signs involving the genitourinary system; Z80.42 Family history of malignant neoplasm of prostate | CPT/HCPCS: 51798; 81003 ==